=== PATIENT | male | born 1945 | race Caucasian/White ===

== ENCOUNTER 2020-10-23 19:01 | Emergency (ER) | payer MEDICARE, OTHER ==
[~2020-10-23 19:01] MED LIST: AMIODARONE HCL200 MG PO; ANTIVERT25 MG PO; ASPIRIN EC81 MG PO; BRILINTA90 MG PO; CO Q-10100 MG PO; COUMADIN5 MG PO; COUMADIN6 MG PO; DOCUSATE SODIU1 EAC1 PO; FEOSOL325 MG PO; HYOSCYAMINE0.375 MG PO; IRON18 MG PO; JUICE PLUS GARDEN PO; LOPRESSOR25 MG PO; LOVAZA1 GM PO; MAG-AL LIQUID30 ML PO; MAG-OXIDE 400M400 MG PO; MIRALAX17 GM PO; PLAVIX75 MG PO; RED YEAST RICE600 MG PO; VITAMIN C500 M4 PO; VITAMIN D1000 UNI1 PO; ZINC50 M1 PO; ZOFRAN4 MG SL; [UNRECOGNIZED DRUG - OTHER] PO
[2020-10-23 20:06] LABS: BASOPHIL 0.4 % (0-2); EOSINOPHIL 3.6 % (0-7); HCT 39.8 % (42.0-52.0); HGB 13.4 g/dl (13.2-18.0); LYMPHOCYTE 17.4 % (15-48); MCH 33.1 pg (25.0-31.0); MCHC 33.7 g/dL (32.0-36.0); MCV 98.3 fL (78.0-100.0); MONOCYTE 7.3 % (0-12); NRBC 0; PLT 160 K/uL (150-400); RBC 4.05 M/uL (4.70-6.00); RDW 12.3 % (11.5-14.0); WBC 9.2 K/uL (4.0-10.5)
[2020-10-23 20:12] LABS: INR 1.14 (0.9-1.2); PROTHROMBIN TIME 13.9 SECONDS (11.4-13.6)
[2020-10-23 20:13] LABS: PTT 30.8 SECONDS (22.2-34.7)
[2020-10-23 20:21] LABS: ALKALINE PHOSHATASE 69 U/L (46-116); ALT 27 U/L (16-63); AST 23 U/L (15-37); BILIRUBIN - TOTAL 0.4 mg/dL (0.2-1.0); BUN 15 mg/dL (7-18); BUN/CREAT RATIO (CALC) 19.7 RATIO; CHLORIDE 97 mmol/L (98-107); CO2 (BICARBONATE) 27 mmol/L (21-32); CREATININE 0.76 mg/dL (0.67-1.17); GLOBULIN (CALCULATION) 2.6 g/dL; GLUCOSE 111 mg/dL (74-106); POTASSIUM 3.9 mmol/L (3.5-5.1); TOTAL PROTEIN 6.6 g/dL (6.4-8.2)
[2020-10-23 20:32] LABS: C-REACTIVE PROTEIN <0.20 mg/dL (<=0.90)
== END 2020-10-23 22:51 | disposition home or self-care (01) ==
LOC: FER 19:01
PROVIDERS: Emergency Medicine Emergency Medical Services
DX: R42 Dizziness and giddiness (principal); I25.2 Old myocardial infarction; Z95.1 Presence of aortocoronary bypass graft; Z79.82 Long term (current) use of aspirin; Z79.02 Long term (current) use of antithrombotics/antiplatelets
CPT/HCPCS: 36415; 70450; 71045; 80053; 84484; 85025; 85610; 85730; 86140; 93005

== ENCOUNTER 2021-02-01 13:50 | Emergency (ER) | payer MEDICARE, OTHER ==
[2021-02-01 15:36] LABS: BASOPHIL 0.5 % (0-2); EOSINOPHIL 5.5 % (0-7); HCT 38.6 % (42.0-52.0); HGB 13.4 g/dl (13.2-18.0); LYMPHOCYTE 13.3 % (15-48); MCH 33.7 pg (25.0-31.0); MCHC 34.7 g/dL (32.0-36.0); MONOCYTE 5.6 % (0-12); MPV 12.3 fL (6.0-9.5); NEUTROPHIL 74.9 % (41-80); NRBC 0; PLT 160 K/uL (150-400); RBC 3.98 M/uL (4.70-6.00); RDW 12.1 % (11.5-14.0); WBC 8.2 K/uL (4.0-10.5)
[2021-02-01 15:42] LABS: ALBUMIN 3.6 g/dL (3.4-5.0); BILIRUBIN - TOTAL 0.5 mg/dL (0.2-1.0); BUN/CREAT RATIO (CALC) 19.8 RATIO; CREATININE 0.86 mg/dL (0.67-1.17); GLOBULIN (CALCULATION) 2.6 g/dL; POTASSIUM 4.7 mmol/L (3.5-5.1); TOTAL PROTEIN 6.2 g/dL (6.4-8.2)
[2021-02-01 17:22] LABS: BILIRUBIN NEGATIVE (NEGATIVE); BLOOD NEGATIVE Ery/uL (NEGATIVE); CLARITY CLEAR (CLEAR); COLOR YELLOW (YELLOW); GLUCOSE (U) NORMAL (NORMAL); LEUKOCYTES NEGATIVE Leu/uL (NEGATIVE); NITRITE NEGATIVE (NEGATIVE); PROTEIN NEGATIVE (NEGATIVE); SPECIFIC GRAVITY 1.015 (1.001-1.030); UROBILINOGEN 0.2 mg/dL (0.2-1.0); pH 7.5 (5.0-9.0)
== END 2021-02-01 18:03 | disposition home or self-care (01) ==
LOC: FER 13:50
PROVIDERS: Nurse Practitioner Family
DX: S01.01XA Laceration without foreign body of scalp, initial encounter (principal); R42 Dizziness and giddiness; Z88.8 Allergy status to other drugs, medicaments and biological substances; W19.XXXA Unspecified fall, initial encounter; Y92.009 Unspecified place in unspecified non-institutional (private) residence as the place of occurrence of the external cause; Z23 Encounter for immunization
CPT/HCPCS: 36415; 70450; 72125; 80053; 81003; 84484; 85025; 90471; 90715; 93005; J7030

== ENCOUNTER 2021-07-13 00:31 | Emergency (ER) | payer MEDICARE, OTHER ==
[2021-07-13 01:58] LABS: BASOPHIL 0.7 % (0-2); EOSINOPHIL 4.8 % (0-7); HCT 39.7 % (42.0-52.0); HGB 13.5 g/dl (13.2-18.0); LYMPHOCYTE 14.3 % (15-48); MCH 33.5 pg (25.0-31.0); MCV 98.5 fL (78.0-100.0); MPV 12.4 fL (6.0-9.5); NRBC 0; PLT 149 K/uL (150-400); RBC 4.03 M/uL (4.70-6.00); RDW 12.3 % (11.5-14.0); WBC 6.1 K/uL (4.0-10.5)
[2021-07-13 02:19] LABS: ALBUMIN 3.8 g/dL (3.4-5.0); BILIRUBIN - TOTAL 0.5 mg/dL (0.2-1.0); BUN/CREAT RATIO (CALC) 18.1 RATIO; CREATININE 1.05 mg/dL (0.67-1.17); FT4 (FREE T4) 0.9 ng/dL (0.76-1.46); GLOBULIN (CALCULATION) 2.7 g/dL; MAGNESIUM 2.3 mg/dL (1.8-2.4); PHOSPHORUS 3.8 mg/dL (2.6-4.7); TOTAL PROTEIN 6.5 g/dL (6.4-8.2)
[2021-07-13 02:21] LABS: CKMB 3.8 ng/mL (0.0-3.6)
== END 2021-07-13 03:52 | disposition home or self-care (01) ==
LOC: FER 00:31
PROVIDERS: Emergency Medicine Emergency Medical Services
DX: R00.2 Palpitations (principal); H93.A1 Pulsatile tinnitus, right ear; I25.2 Old myocardial infarction; Z88.3 Allergy status to other anti-infective agents; Z91.041 Radiographic dye allergy status; Z79.82 Long term (current) use of aspirin; Z79.02 Long term (current) use of antithrombotics/antiplatelets
CPT/HCPCS: 36415; 71045; 80053; 82550; 82553; 83735; 84100; 84439; 84443; 84484; 85025; 93005

== ENCOUNTER 2021-07-25 09:36 | Inpatient (IN) | payer MEDICARE, OTHER ==
[~2021-07-25] VITALS: Ht 190.5 cm; Wt 56.4 kg
[2021-07-25 10:16] LABS: BASOPHIL 0.2 % (0-2); EOSINOPHIL 0 % (0-7); HCT 40.7 % (42.0-52.0); HGB 13.8 g/dl (13.2-18.0); MCH 32.9 pg (25.0-31.0); MCHC 33.9 g/dL (32.0-36.0); MCV 97.1 fL (78.0-100.0); MONOCYTE 7.2 % (0-12); MPV 12.1 fL (6.0-9.5); NEUTROPHIL 76.2 % (41-80); NRBC 0; PLT 132 K/uL (150-400); RBC 4.19 M/uL (4.70-6.00); RDW 13.1 % (11.5-14.0); WBC 5.4 K/uL (4.0-10.5)
[2021-07-25 10:20] LABS: INR 1.14 (0.9-1.2); PTT 34.7 SECONDS (24.4-34.7)
[2021-07-25 10:22] LABS: D-DIMER 1.45 ug/mLFEU (0.00-0.41)
[2021-07-25 10:33] LABS: ALBUMIN 3.3 g/dL (3.4-5.0); BILIRUBIN - TOTAL 0.5 mg/dL (0.2-1.0); BUN/CREAT RATIO (CALC) 19.1 RATIO; CREATININE 0.89 mg/dL (0.67-1.17); GLOBULIN (CALCULATION) 3.2 g/dL; POTASSIUM 4.1 mmol/L (3.5-5.1); TOTAL PROTEIN 6.5 g/dL (6.4-8.2)
[2021-07-25 10:34] LABS: LACTIC ACID 1.6 mmol/L (0.4-1.9)
[2021-07-25 10:56] LABS: INFLUENZA A NAA NEGATIVE (NEGATIVE)
[2021-07-25 11:01] LABS: CORONAVIRUS 2019 SARS-COV-2 POSITIVE (NEGATIVE)
[2021-07-25 12:54] LABS: BILIRUBIN NEGATIVE (NEGATIVE); BLOOD NEGATIVE Ery/uL (NEGATIVE); CLARITY CLEAR (CLEAR); COLOR YELLOW (YELLOW); GLUCOSE (U) NORMAL (NORMAL); LEUKOCYTES NEGATIVE Leu/uL (NEGATIVE); NITRITE NEGATIVE (NEGATIVE); PROTEIN 1+ mg/dL (NEGATIVE); pH 7.5 (5.0-9.0)
[2021-07-25 13:06] LABS: BACTERIA 2+; MUCOUS LARGE; SQUAMOUS EPITHELIAL CELLS RARE
--- NOTE | 2021-07-25 16:30 | NUR ---
[address] CONWAY THAT THE PATIENT HEART RATE WAS BETWEEN 140-167 AND O2 SAT 90% ON 2L NC. 1655 PATIENT RESTING IN THE BED WITHOUT INCREASED DISTRESS BUT HEART RATE IS STILL IN THE 140'S B/P 108/50 NEW ORDERS TO GIVE LOPRESSOR 5MG IV SLOWLY AND RECHECK. 1701 EKG SHOWED HR 122 AND AFIB WITH RAPID RVR. 1718 REPORT WAS GIVEN TO SORAIDA LAZARO RN AND TRANSFERRED TO TCU VIA BED WITH STAFF.
[2021-07-26 04:20] LABS: BASOPHIL 0.3 % (0-2); EOSINOPHIL 0 % (0-7); HCT 43.1 % (42.0-52.0); HGB 14.4 g/dl (13.2-18.0); LYMPHOCYTE 26.5 % (15-48); MCH 32.7 pg (25.0-31.0); MCHC 33.4 g/dL (32.0-36.0); MPV 11.9 fL (6.0-9.5); NRBC 0; PLT 149 K/uL (150-400); RDW 13.2 % (11.5-14.0); WBC 3.7 K/uL (4.0-10.5)
[2021-07-26 04:25] LABS: NEUTROPHIL 62.7 % (41-80)
[2021-07-26 05:42] LABS: ALBUMIN 2.9 g/dL (3.4-5.0); BILIRUBIN - TOTAL 0.5 mg/dL (0.2-1.0); CREATININE 0.84 mg/dL (0.67-1.17); GLOBULIN (CALCULATION) 4.1 g/dL; POTASSIUM 4.6 mmol/L (3.5-5.1)
[2021-07-27] MEDS ORDERED: ANTIVERT12.5 MG PO (04:48)
[2021-07-28] MEDS ORDERED: VENTOLIN HFA IN18 GM INH (10:36)
[2021-07-28] MEDS ORDERED: LOPRESSOR25 MG PO (10:36)
[2021-07-28] MEDS ORDERED: DEXAMETHASONE6 MG PO (10:36)
--- NOTE | 2021-07-28 12:11 | NUR ---
07/28/21 Mr. Wan requested to see a social group worker. He requested the telephone # to [facility]. He said he no longer needs the telephone # because he has the number at home and is being discharged. Mr. Wan does not have a Medicare D plan. He is not interested in getting Medicare D because his medications are less expensive then the cost of the plan.
== END 2021-07-28 18:06 | disposition home or self-care (01) | DRG 177 ==
LOC: FER 09:36 → FMS 13:43 → FTCU 13:43 → FMS 07-27 10:06
PROVIDERS: Emergency Medicine; ADMIT Internal Medicine
PROC: 8E0ZXY6 Isolation (ICD-10-PCS; principal; 2021-07-25)
PROC: XW033E5 Introduction of Remdesivir Anti-infective into Peripheral Vein, Percutaneous Approach, New Technology Group 5 (ICD-10-PCS; 2021-07-25)
DX: U07.1 COVID-19 (principal); J12.82 Pneumonia due to coronavirus disease 2019; J96.01 Acute respiratory failure with hypoxia; J15.9 Unspecified bacterial pneumonia; I48.0 Paroxysmal atrial fibrillation; Z53.29 Procedure and treatment not carried out because of patient's decision for other reasons; I25.10 Atherosclerotic heart disease of native coronary artery without angina pectoris; I10 Essential (primary) hypertension; E78.5 Hyperlipidemia, unspecified; F41.9 Anxiety disorder, unspecified; Z96.652 Presence of left artificial knee joint; Z95.1 Presence of aortocoronary bypass graft; Z87.01 Personal history of pneumonia (recurrent); Z88.8 Allergy status to other drugs, medicaments and biological substances; Z79.02 Long term (current) use of antithrombotics/antiplatelets; Z79.899 Other long term (current) drug therapy; Z91.041 Radiographic dye allergy status
CPT/HCPCS: 36415; 36600; 71045; 71275; 80053; 81001; 82728; 82803; 83605; 83880; 84145; 84484; 85025; 85379; 85610; 85730; 93005; C9399; J0696; J1100; J1200; J1650; J2930; J7050; J8540; Q9967; U0002

== ENCOUNTER 2021-08-06 14:51 | Emergency (ER) | payer MEDICARE, OTHER ==
[~2021-08-06 14:51] MED LIST changes: +ANTIVERT12.5 MG PO; +DEXAMETHASONE6 MG PO; +VENTOLIN HFA IN18 GM INH
[2021-08-06 15:32] LABS: BASOPHIL 0.2 % (0-2); EOSINOPHIL 1.2 % (0-7); HCT 40.6 % (42.0-52.0); HGB 13.7 g/dl (13.2-18.0); MCH 32.9 pg (25.0-31.0); MCHC 33.7 g/dL (32.0-36.0); MCV 97.4 fL (78.0-100.0); MONOCYTE 9.4 % (0-12); MPV 11.1 fL (6.0-9.5); NEUTROPHIL 71.3 % (41-80); NRBC 0; PLT 257 K/uL (150-400); RBC 4.17 M/uL (4.70-6.00); RDW 13.1 % (11.5-14.0)
[2021-08-06 15:36] LABS: INR 1.09 (0.9-1.2); PROTHROMBIN TIME 13.5 SECONDS (11.8-13.4); PTT 28.5 SECONDS (24.4-34.7)
[2021-08-06 15:51] LABS: D-DIMER 7.23 ug/mLFEU (0.00-0.41)
[2021-08-06 16:08] LABS: BILIRUBIN NEGATIVE (NEGATIVE); BLOOD NEGATIVE Ery/uL (NEGATIVE); CLARITY CLEAR (CLEAR); COLOR YELLOW (YELLOW); GLUCOSE (U) NORMAL (NORMAL); LEUKOCYTES NEGATIVE Leu/uL (NEGATIVE); NITRITE NEGATIVE (NEGATIVE); PROTEIN NEGATIVE (NEGATIVE); SPECIFIC GRAVITY 1.015 (1.001-1.030); UROBILINOGEN 0.2 mg/dL (0.2-1.0)
[2021-08-06 16:40] LABS: PRO-BNP 369 pg/mL (<450)
[2021-08-06 16:47] LABS: LACTIC ACID 0.8 mmol/L (0.4-1.9)
[2021-08-06 17:11] LABS: ALBUMIN 3.1 g/dL (3.4-5.0); ALKALINE PHOSHATASE 60 U/L (46-116); ALT 44 U/L (16-63); AST 15 U/L (15-37); BILIRUBIN - TOTAL 0.5 mg/dL (0.2-1.0); BUN 19 mg/dL (7-18); BUN/CREAT RATIO (CALC) 21.8 RATIO; CHLORIDE 103 mmol/L (98-107); CO2 (BICARBONATE) 24 mmol/L (21-32); CPK 53 U/L (39-308); CREATININE 0.87 mg/dL (0.67-1.17); GLOBULIN (CALCULATION) 3.5 g/dL; GLUCOSE 98 mg/dL (74-106); LDH 203 U/L (85-227); LIPASE 233 U/L (73-393); MAGNESIUM 2.3 mg/dL (1.8-2.4); TOTAL PROTEIN 6.6 g/dL (6.4-8.2)
[2021-08-06] MEDS ORDERED: ATIVAN0.5 MG PO (22:56)
== END 2021-08-06 23:26 | disposition home or self-care (01) ==
LOC: FER 14:51
PROVIDERS: Emergency Medicine
DX: R53.1 Weakness (principal); R06.02 Shortness of breath; R00.2 Palpitations; U09.9 Post COVID-19 condition, unspecified
CPT/HCPCS: 36415; 71275; 80053; 81003; 82550; 83540; 83550; 83605; 83615; 83690; 83735; 83880; 84145; 84439; 84443; 84484; 85025; 85379; 85610; 85730; 86140; 93005; G0480; J1200; J2930; Q9967

== ENCOUNTER 2021-08-09 20:50 | Emergency (ER) | payer MEDICARE, OTHER ==
[~2021-08-09 20:50] MED LIST changes: +ATIVAN0.5 MG PO
[2021-08-09 21:28] LABS: BASOPHIL 0.1 % (0-2); EOSINOPHIL 0.5 % (0-7); HCT 37.9 % (42.0-52.0); HGB 12.6 g/dl (13.2-18.0); LYMPHOCYTE 7.4 % (15-48); MCH 32.6 pg (25.0-31.0); MCHC 33.2 g/dL (32.0-36.0); MCV 98.2 fL (78.0-100.0); MONOCYTE 10.4 % (0-12); MPV 11.6 fL (6.0-9.5); NEUTROPHIL 81.1 % (41-80); NRBC 0; PLT 156 K/uL (150-400); RBC 3.86 M/uL (4.70-6.00); RDW 13.4 % (11.5-14.0); WBC 14.8 K/uL (4.0-10.5)
[2021-08-09 21:50] LABS: BILIRUBIN - TOTAL 0.6 mg/dL (0.2-1.0); BUN/CREAT RATIO (CALC) 21.3 RATIO; CREATININE 0.89 mg/dL (0.67-1.17); GLOBULIN (CALCULATION) 3.2 g/dL; TOTAL PROTEIN 6.2 g/dL (6.4-8.2)
[2021-08-09 22:05] LABS: LACTIC ACID 2.1 mmol/L (0.4-1.9)
[2021-08-09] MEDS ORDERED: AZITHROMYCIN250 MG PO (23:28)
[2021-08-09] MEDS ORDERED: PREDNISONE 20MG20 MG PO (23:28)
== END 2021-08-10 00:10 | disposition home or self-care (01) ==
LOC: FER 20:50
PROVIDERS: Internal Medicine; Nurse Practitioner Family
DX: U07.1 COVID-19 (principal); R07.81 Pleurodynia; I48.91 Unspecified atrial fibrillation; Z88.3 Allergy status to other anti-infective agents; Z91.041 Radiographic dye allergy status
CPT/HCPCS: 36415; 71046; 80053; 83605; 84145; 84484; 85025; 87040; 93005; J2930; J7030

== ENCOUNTER 2021-08-12 13:11 | Emergency (ER) | payer MEDICARE, OTHER ==
[~2021-08-12 13:11] MED LIST changes: +AZITHROMYCIN250 MG PO; +PREDNISONE 20MG20 MG PO
[2021-08-12 13:55] LABS: BASOPHIL 0 % (0-2); EOSINOPHIL 0 % (0-7); HCT 38.5 % (42.0-52.0); HGB 12.8 g/dl (13.2-18.0); LYMPHOCYTE 4.1 % (15-48); MCH 33.2 pg (25.0-31.0); MCHC 33.2 g/dL (32.0-36.0); MONOCYTE 2.6 % (0-12); MPV 11.8 fL (6.0-9.5); NEUTROPHIL 92.7 % (41-80); NRBC 0; PLT 130 K/uL (150-400); RBC 3.85 M/uL (4.70-6.00); RDW 13.7 % (11.5-14.0)
[2021-08-12 14:08] LABS: WBC 12.5 K/uL (4.0-10.5)
[2021-08-12 14:20] LABS: BUN/CREAT RATIO (CALC) 26.7 RATIO; CREATININE 0.75 mg/dL (0.67-1.17); POTASSIUM 4.3 mmol/L (3.5-5.1)
[2021-08-12 14:55] LABS: LACTIC ACID 1.6 mmol/L (0.4-1.9)
[2021-08-12 15:11] LABS: BILIRUBIN NEGATIVE (NEGATIVE); BLOOD NEGATIVE Ery/uL (NEGATIVE); CLARITY CLEAR (CLEAR); COLOR YELLOW (YELLOW); GLUCOSE (U) NORMAL (NORMAL); LEUKOCYTES NEGATIVE Leu/uL (NEGATIVE); NITRITE NEGATIVE (NEGATIVE); PROTEIN NEGATIVE (NEGATIVE); SPECIFIC GRAVITY 1.015 (1.001-1.030); UROBILINOGEN 0.2 mg/dL (0.2-1.0)
== END 2021-08-12 19:17 | disposition home or self-care (01) ==
LOC: FER 13:11
PROVIDERS: Emergency Medicine
DX: I48.0 Paroxysmal atrial fibrillation (principal); I25.810 Atherosclerosis of coronary artery bypass graft(s) without angina pectoris; Z87.01 Personal history of pneumonia (recurrent); Z95.5 Presence of coronary angioplasty implant and graft; Z79.899 Other long term (current) drug therapy
CPT/HCPCS: 36415; 71045; 80048; 81003; 83605; 84443; 84484; 85025; 93005; J7040

== ENCOUNTER 2021-08-14 00:54 | Emergency (ER) | payer MEDICARE, OTHER ==
[2021-08-14 01:22] LABS: BASOPHIL 0.1 % (0-2); EOSINOPHIL 0.4 % (0-7); HGB 12.2 g/dl (13.2-18.0); LYMPHOCYTE 15.4 % (15-48); MCHC 33.9 g/dL (32.0-36.0); MCV 97.3 fL (78.0-100.0); MONOCYTE 7.8 % (0-12); MPV 11.6 fL (6.0-9.5); NRBC 0; PLT 119 K/uL (150-400); RDW 13.2 % (11.5-14.0); WBC 10.1 K/uL (4.0-10.5)
[2021-08-14 01:32] LABS: INR 1.05 (0.9-1.2); PROTHROMBIN TIME 13.1 SECONDS (11.8-13.4); PTT 27.5 SECONDS (24.4-34.7)
[2021-08-14 01:37] LABS: ALBUMIN 2.8 g/dL (3.4-5.0); BILIRUBIN - TOTAL 0.4 mg/dL (0.2-1.0); BUN/CREAT RATIO (CALC) 21.5 RATIO; CREATININE 0.65 mg/dL (0.67-1.17); GLOBULIN (CALCULATION) 3.7 g/dL; POTASSIUM 4.1 mmol/L (3.5-5.1); TOTAL PROTEIN 6.5 g/dL (6.4-8.2)
== END 2021-08-14 04:05 | disposition home or self-care (01) ==
LOC: FER 00:54
PROVIDERS: Surgery
DX: I48.91 Unspecified atrial fibrillation (principal); I25.10 Atherosclerotic heart disease of native coronary artery without angina pectoris; Z79.82 Long term (current) use of aspirin; Z79.02 Long term (current) use of antithrombotics/antiplatelets
CPT/HCPCS: 36415; 71045; 80053; 84484; 85025; 85610; 85730; 93005

== ENCOUNTER 2021-08-22 08:48 | Emergency (ER) | payer MEDICARE, OTHER ==
[2021-08-22 09:52] LABS: BASOPHIL 0.4 % (0-2); EOSINOPHIL 1.6 % (0-7); HCT 39.5 % (42.0-52.0); HGB 12.9 g/dl (13.2-18.0); LYMPHOCYTE 16.3 % (15-48); MCH 33.1 pg (25.0-31.0); MCHC 32.7 g/dL (32.0-36.0); MONOCYTE 9.4 % (0-12); NEUTROPHIL 71.9 % (41-80); NRBC 0; PLT 195 K/uL (150-400); RDW 13.9 % (11.5-14.0); WBC 8.2 K/uL (4.0-10.5)
[2021-08-22 09:53] LABS: MCV 101.3 fL (78.0-100.0)
[2021-08-22 10:25] LABS: BILIRUBIN - TOTAL 0.6 mg/dL (0.2-1.0); BUN/CREAT RATIO (CALC) 21.8 RATIO; CREATININE 0.78 mg/dL (0.67-1.17); GLOBULIN (CALCULATION) 3.8 g/dL; TOTAL PROTEIN 6.8 g/dL (6.4-8.2)
[2021-08-22] MEDS ORDERED: FLOMAX0.4 MG PO (11:08)
== END 2021-08-22 11:24 | disposition home or self-care (01) ==
LOC: FER 08:48
PROVIDERS: Internal Medicine
DX: R00.2 Palpitations (principal); N40.0 Benign prostatic hyperplasia without lower urinary tract symptoms; I25.10 Atherosclerotic heart disease of native coronary artery without angina pectoris; Z95.1 Presence of aortocoronary bypass graft; Z95.5 Presence of coronary angioplasty implant and graft; Z79.899 Other long term (current) drug therapy; Z88.6 Allergy status to analgesic agent; Z88.8 Allergy status to other drugs, medicaments and biological substances; Z91.041 Radiographic dye allergy status
CPT/HCPCS: 36415; 80053; 84145; 84443; 84484; 85025; 93005

== ENCOUNTER 2022-06-15 09:56 | Emergency (ER) | payer MEDICARE, OTHER ==
[~2022-06-15 09:56] MED LIST changes: +FLOMAX0.4 MG PO
[2022-06-15 10:36] LABS: BASOPHIL 0.5 % (0-2); EOSINOPHIL 4.3 % (0-7); HCT 42.6 % (42.0-52.0); HGB 14.3 g/dl (13.2-18.0); LYMPHOCYTE 17.5 % (15-48); MCHC 33.6 g/dL (32.0-36.0); MCV 98.4 fL (78.0-100.0); MONOCYTE 7.9 % (0-12); NEUTROPHIL 69.4 % (41-80); NRBC 0; PLT 150 K/uL (150-400); RBC 4.33 M/uL (4.70-6.00); WBC 7.6 K/uL (4.0-10.5)
[2022-06-15 10:40] LABS: INR 1.07 (0.9-1.2); PROTHROMBIN TIME 13.6 SECONDS (11.9-13.9); PTT 26.9 SECONDS (24.9-34.6)
[2022-06-15 10:50] LABS: ALBUMIN 3.6 g/dL (3.4-5.0); BILIRUBIN - TOTAL 0.7 mg/dL (0.2-1.0); BUN/CREAT RATIO (CALC) 14.9 RATIO; CREATININE 0.94 mg/dL (0.67-1.17); GLOBULIN (CALCULATION) 3.1 g/dL; POTASSIUM 4.7 mmol/L (3.5-5.1); TOTAL PROTEIN 6.7 g/dL (6.4-8.2)
== END 2022-06-15 13:37 | disposition home or self-care (01) ==
LOC: FER 09:56
PROVIDERS: Emergency Medicine
DX: I49.8 Other specified cardiac arrhythmias (principal); I45.10 Unspecified right bundle-branch block; I51.7 Cardiomegaly; J42 Unspecified chronic bronchitis; I25.2 Old myocardial infarction; Z95.1 Presence of aortocoronary bypass graft; Z28.310 Unvaccinated for COVID-19; Z91.041 Radiographic dye allergy status; Z79.02 Long term (current) use of antithrombotics/antiplatelets; Z79.899 Other long term (current) drug therapy
CPT/HCPCS: 36415; 71045; 80053; 84484; 85025; 85610; 85730; 93005